=== PATIENT | male | born 1965 | race Caucasian/White ===

== ENCOUNTER 2017-08-19 02:47 | Inpatient (IN) ==
[2017-08-19] MEDS ORDERED: MOM Conc 10 ML UD.LIQ PO PRN (03:15)
[2017-08-19] MEDS ORDERED: hydrOXYzine pamoate 25 MG CAPSULE PO PRN (03:15)
[2017-08-19] MEDS ORDERED: *HR* LORazepam 2 MG/ML VIAL IM PRN (03:15)
[2017-08-19] MEDS ORDERED: *HR* LORazepam 1 MG TABLET PO PRN (03:15)
[2017-08-19] MEDS ORDERED: Mag Hydrox/Al Hydrox/Simeth 30 ML UDC PO PRN (03:15)
[2017-08-19] MEDS ORDERED: Acetaminophen 325 MG TABLET PO PRN (03:15)
[2017-08-19] MEDS ORDERED: Haloperidol Lactate 5 MG/ML VIAL IM PRN (03:15)
--- NOTE | 2017-08-19 13:35 | Psychiatry History & Physical ---
Date of Encounter: 08/19/17 Time of Encounter: 13:21 History of Present Illness Patient Stated Chief Complaint: suicidal ideation Medicare Admission Attestation: For traditional Medicare patients the provided hospital inpatient services are reasonable and necessary and in the case of services not specified as inpatient -only under 42 CFR 419.22 (n), that they are appropriately provided as inpatient services in accordance 42 CFR 412.3. For Critical Access Hospital the patient may reasonably be expected to be discharged or transferred to a hospital within 96 hours after admission to the Critical Access Hospital. Admitted From: Home Plans for Post Hospital Care: Home History of Present Illness: Mr. Guerrero is a 51 year old male who was admitted secondary to SI. Client has been living with his father. They got in an argument and client presented to the ER so he didn't do something he would regret in response to the arguing. Client is addicted to meth and this is often the source of the arguing. Client has no intention of stopping the meth. He reports he has been using for better than 20 years. He does not have any of the physical signs of being a meth user but his tox screen is positive for meth. Client states meth is what helps him feel normal and he is not looking to stop. He admits to being depressed. Has been admitted for SI in the past. Prior suicide attempts as well. Currently he seems to have more of a passive wish. However, he is very high risk. He is in liver failure. He is positive for Hep B and Hep C. He was supposed to have an ultrasound today to look for liver cancer but he canceled it. Client states he cancels most appointments and that he chronically does not follow through with things. He is not looking to fix anything wrong with him but he does want to know if he has a terminal condition and how much time he has left as this will impact how he chooses to live his life and the decisions he plans to make. Has been given the diagnoses of Bipolar Disorder and Multiple Personality Disorder in the past but has not followed up with Psychiatry in a long time. Willing to accept treatment for depression but does not have much hope that anything will work for him. Options are limited given the status of his liver. Discussed [place] since it is metabolized by the kidneys, is a great mood agent, and specifically targets suicidal thoughts. Discussed the potential for toxicity, the need for blood draws, the importance of staying hydrated, and side effects including the fact that [place] could impact kidney functioning. Client is agreeable at this time. Past Med Surg Social Fam HX - Past Medical History Medical history: cancer, GERD, other - Past Psychiatric History Psychiatric history: Reports: bipolar, depression, prior suicide attempt, previous psychiatric hospitalization Family psychiatric history: Unknown Family History of Suicide: Unknown - Past Surgical History Surgical History: no surgical history - Social History Smoking Status: Never smoker Smokeless Tobacco Status: No Alcohol use: none Drug use: methamphetamine, IV Drug Use - Family History Mother Adopted: [place]: Alissa Guerrero Age: 62 Family Member Ethnicity: Non- Living Status: Age at : 62 Cause of : CHF Hx Family Cardiac Disorders: No Hx Family Respiratory Disorders: Yes (Lung cancer) Hx Family Cancer: Yes Hx Family GI Disorders: Yes (colon cancer) Hx Family Genitourinary Disorders: No Hx Family Endocrine Disorder: No Hx Family Musculoskeletal Disorders: No Hx Family Neuromuscular Disorders: No Hx Family Neurologic Disorders: No Hx Family HEENT Disorders: No Hx Family Autoimmune Disorders: No Hx Family Reproductive Disorders: No Hx Family Psychosocial Disorders: No Hx Family Medical Disorders: No Medications & Allergies No Known Home Drugs 08/19/17 [History] 3 Allergy/AdvReac Type Severity Reaction Status Date / Time No Known Allergies Allergy Verified 01/23/16 19:17 Review of Systems Constitutional: Denies: fever, chills, weakness, weight change Eyes: Denies: eye pain, vision change Ears, Nose, Throat: Denies: ear pain, throat pain, dental pain, hearing loss, congestion Cardiovascular: Denies: chest pain, palpitations, dyspnea on exertion Respiratory: Denies: cough, dyspnea, wheezes Gastrointestinal: Reports: abdominal pain Genitourinary male: Denies: urgency, dysuria, frequency, genital lesions Genitourinary female: Denies: urgency, dysuria, frequency, abnormal menses, dyspareunia Musculoskeletal: Denies: joint swelling, joint pain Integumentary: Reports: other Neurological: Denies: headache, weakness, numbness, memory loss Endocrine: Denies: fatigue, heat or cold intolerance Hematologic/Lymphatic: Denies: easy bruising, lymphadenopathy Allergic/Immunologic: Denies: urticaria, itchy eyes Mental Status Exam Patient orientation: Yes Person, Yes Time, Yes Place Level of alertness: Alert Patient appearance: Appropriate Behavior: calm, cooperative Psychomotor activity: Normal Eye contact: Maintains Eye Contact Mood description: Depressed Affect description: congruent with mood Speech pattern: Normal rate, Normal rhythm, Normal tone Speech volume: Normal Thought process: Linear Thought content: Yes Suicidal ideation, No Homicidal ideation, No Overt delusions Perceptual disturbances: No Reacting to internal stimuli, Yes Auditory hallucinations, No Visual hallucinations Attention span: Capable of Focused Attention Memory description: Grossly Intact Patient reliability: Reliable Historian Intelligence estimate: Average Judgment: Limited Insight: Partial Exam - HEENT Head exam IM: Present: atraumatic Eye exam IM: Present: scleral icterus ENT exam IM: Present: mucous membranes moist - Neurological Neurological exam IM: Present: alert, oriented X3 - Respiratory Respiratory exam IM: Present: CTAB - GI/Abdominal GI/Abdominal exam IM: Present: hepatomegaly - Extremities Extremities exam IM: Present: full ROM - Skin Skin exam IM: Present: intact Results - Vital Signs Vital signs: Temp Pulse Resp BP 98.9 F 75 18 119/87 08/19/17 09:00 08/19/17 09:00 08/19/17 09:00 08/19/17 09:00 Assessment and Plan (1) Bipolar disorder with current episode depressed Current visit: Yes Status: Acute Plan: Admit inpatient for safety and stabilization, Close observation, Suicide Precautions per unit protocol, Encourage participation in unit milieu, Group Therapy, Monitor sleep, Monitor appetite Risks, benefits, side effects, alternatives discussed w/pt: Yes Patient agreeable to treatment: Yes Plans for Post Hospital Care: Home Estimated Length of Stay (Days): 4 Qualifiers: Current episode severity: severe Psychotic features: without psychotic features Qualified Code(s): F31.4 - Bipolar disorder, current episode depressed, severe, without psychotic features (2) Methamphetamine dependence Current visit: Yes Status: Acute Plan: Admit inpatient for safety and stabilization, Close observation, Suicide Precautions per unit protocol, Encourage participation in unit milieu, Group Therapy, Monitor sleep, Monitor appetite Risks, benefits, side effects, alternatives discussed w/pt: Yes Patient agreeable to treatment: Yes Plans for Post Hospital Care: Home Estimated Length of Stay (Days): 4
[2017-08-19] MEDS: Lithium Carbonate 300 MG CAPSULE PO SCH (20:57)
[2017-08-20] MEDS: Lithium Carbonate 300 MG CAPSULE PO SCH ×2 (08:35→20:54)
--- NOTE | 2017-08-20 11:15 | Psychiatry Progress Note ---
Date of Encounter: 08/20/17 Time of Encounter: 11:06 Subjective Interval history: Client is very depressed. He is trying to look at things less negatively which he says is a major change for him. Client states he normally can't even commit to trying to change his attitude. Has a lot of self loathing. Doesn't see himself as deserving any help but he is very grateful to the staff here for working with him. Did say he would agree to a liver ultrasound if that is something that can be arranged while he is here. Unknown if this can happen while he is on 1A but his follow through for medical care has been so poor in the community it is worth looking into. Compliant with [place]. No real mood benefits yet but client denies side effects. Agreeable to blood levels. Review of Systems Constitutional: Reports: weakness Eyes: Denies: eye pain, vision change Ears, Nose, Throat: Denies: ear pain, throat pain, dental pain, hearing loss, congestion Cardiovascular: Denies: chest pain, palpitations, dyspnea on exertion Respiratory: Denies: cough, dyspnea, wheezes Gastrointestinal: Reports: abdominal pain Musculoskeletal: Reports: myalgia Neurological: Reports: weakness Objective: Exam Patient orientation: Yes Person, Yes Time, Yes Place Level of alertness: Alert Patient appearance: Appropriate Behavior: calm, cooperative Psychomotor activity: Normal Eye contact: Maintains Eye Contact Mood description: Depressed Affect description: congruent with mood Speech pattern: Normal rate, Normal rhythm, Normal tone Speech volume: Normal Thought process: Linear Thought content: Yes Suicidal ideation, No Homicidal ideation, No Overt delusions Perceptual disturbances: No Auditory hallucinations, No Visual hallucinations Judgment: Limited Insight: Partial Results - Vital Signs Vital Signs: Temp Pulse Resp BP 97.6 F 72 14 118/85 08/20/17 08:41 08/20/17 08:41 08/20/17 08:41 08/20/17 08:41 Assessment and Plan (1) Bipolar disorder with current episode depressed Current visit: Yes Status: Acute Plan: Continue hospitalization, Close observation, Suicide Precautions per unit protocol, Encourage participation in unit milieu, Group Therapy, Monitor sleep, Monitor appetite Risks, benefits, side effects, alternatives discussed w/pt: Yes Patient agreeable to treatment: Yes Qualifiers: Current episode severity: severe Psychotic features: without psychotic features Qualified Code(s): F31.4 - Bipolar disorder, current episode depressed, severe, without psychotic features (2) Methamphetamine dependence Current visit: Yes Status: Acute Plan: Continue hospitalization, Close observation, Suicide Precautions per unit protocol, Encourage participation in unit milieu, Group Therapy, Monitor sleep, Monitor appetite Risks, benefits, side effects, alternatives discussed w/pt: Yes Patient agreeable to treatment: Yes Consult Discharge Plan - Plan Referrals: NONE,PCP [Primary Care Provider] -
[2017-08-21] MEDS: Lithium Carbonate 300 MG CAPSULE PO SCH ×2 (08:53→20:37)
--- NOTE | 2017-08-21 10:16 | Psychiatry Progress Note ---
Date of Encounter: 08/21/17 Time of Encounter: 10:11 Subjective Interval history: Pleasant and cooperative but remains depressed with SI. States he is trying to change his mindset. Grateful to staff for helping him. Cooperated with getting a liver ultrasound this morning. Agitated over fact that police had to accompany him. "I don't get along with the police. I didn't say anything. It' s stupid." Understood need to have police escort from . Did not argue against it but reported having a police presence soured his mood. States he is not feeling as physically well today. Complaining of some back pain. Still able to eat. No nausea or vomiting. Will get ultrasound results later today. Tolerating [place] but no real mood benefits yet. Still too early for a steady state blood level. Review of Systems Constitutional: Denies: fever, chills, weakness, weight change Eyes: Denies: eye pain, vision change Ears, Nose, Throat: Denies: ear pain, throat pain, dental pain, hearing loss, congestion Cardiovascular: Denies: chest pain, palpitations, dyspnea on exertion Respiratory: Denies: cough, dyspnea, wheezes Gastrointestinal: Reports: abdominal pain Musculoskeletal: Reports: back pain Neurological: Denies: headache, weakness, numbness, memory loss Results - Vital Signs Vital Signs: Temp Pulse Resp BP 98.2 F 68 18 109/82 08/21/17 09:00 08/21/17 09:00 08/21/17 09:00 08/21/17 09:00 - Impressions ITS Impressions Liver Ultrasound 08/21/17 00:00 IMPRESSION: Unremarkable right upper quadrant ultrasound. D/ / Ryland Dunbar MD / Ryland Dunbar MD Interpreting Provider: Ryland Dunbar MD Assessment and Plan (1) Bipolar disorder with current episode depressed Current visit: Yes Status: Acute Plan: Continue hospitalization, Close observation, Suicide Precautions per unit protocol, Encourage participation in unit milieu, Group Therapy, Monitor sleep, Monitor appetite Risks, benefits, side effects, alternatives discussed w/pt: Yes Patient agreeable to treatment: Yes Qualifiers: Current episode severity: severe Psychotic features: without psychotic features Qualified Code(s): F31.4 - Bipolar disorder, current episode depressed, severe, without psychotic features (2) Methamphetamine dependence Current visit: Yes Status: Acute Plan: Continue hospitalization, Close observation, Suicide Precautions per unit protocol, Encourage participation in unit milieu, Group Therapy, Monitor sleep, Monitor appetite Risks, benefits, side effects, alternatives discussed w/pt: Yes Patient agreeable to treatment: Yes Consult Discharge Plan - Plan Referrals: NONE,PCP [Primary Care Provider] -
[2017-08-22] MEDS: Lithium Carbonate 300 MG CAPSULE PO SCH ×3 (09:01→21:52)
--- NOTE | 2017-08-22 10:43 | Psychiatry Progress Note ---
Date of Encounter: 08/22/17 Time of Encounter: 10:38 Subjective Interval history: Client cooperative with liver ultrasound yesterday. Report on line but nothing concerning on exam. Elevated transaminases likely secondary to Hep B and Hep C. Explained diagnosis to client and importance of following up with a GI specialist for management at the time of discharge. Client indicated he was hoping for something terminal. Said this with a half smile. Clearly depressed but may be looking at some personality issues as well. Client reports no real benefit from the [place]. However, he clinically looks a little better to this gag writer. More affect. More inflection in voice. Subtle signs. States he is eating and sleeping well. SI still present. [place] level scheduled to be drawn morning of 08/24. Dose can be adjusted based on level. May need to consider adding an antidepressant but will need to use caution given liver condition. Review of Systems Constitutional: Denies: fever, chills, weakness, weight change Eyes: Denies: eye pain, vision change Ears, Nose, Throat: Denies: ear pain, throat pain, dental pain, hearing loss, congestion Cardiovascular: Denies: chest pain, palpitations, dyspnea on exertion Respiratory: Denies: cough, dyspnea, wheezes Gastrointestinal: Reports: abdominal pain Musculoskeletal: Reports: back pain, myalgia Neurological: Denies: headache, weakness, numbness, memory loss Objective: Exam Patient orientation: Yes Person, Yes Time, Yes Place Level of alertness: Alert Patient appearance: Appropriate Behavior: calm, cooperative Psychomotor activity: Normal Eye contact: Maintains Eye Contact Mood description: Depressed Affect description: congruent with mood Speech pattern: Normal rate, Normal rhythm, Normal tone Speech volume: Normal Thought process: Linear Thought content: Yes Suicidal ideation, No Homicidal ideation, No Overt delusions Perceptual disturbances: No Auditory hallucinations, No Visual hallucinations Judgment: Limited Insight: Partial Results - Vital Signs Vital Signs: Temp Pulse Resp BP 98 F 67 16 120/85 08/22/17 09:00 08/22/17 09:00 08/22/17 09:00 08/22/17 09:00 - Impressions ITS Impressions Liver Ultrasound 08/21/17 00:00 IMPRESSION: Unremarkable right upper quadrant ultrasound. D/ / Ryland Dunbar MD / Ryland Dunbar MD Interpreting Provider: Ryland Dunbar MD Assessment and Plan (1) Bipolar disorder with current episode depressed Current visit: Yes Status: Acute Plan: Continue hospitalization, Close observation, Suicide Precautions per unit protocol, Encourage participation in unit milieu, Group Therapy, Monitor sleep, Monitor appetite Risks, benefits, side effects, alternatives discussed w/pt: Yes Patient agreeable to treatment: Yes Qualifiers: Current episode severity: severe Psychotic features: without psychotic features Qualified Code(s): F31.4 - Bipolar disorder, current episode depressed, severe, without psychotic features (2) Methamphetamine dependence Current visit: Yes Status: Acute Plan: Continue hospitalization, Close observation, Suicide Precautions per unit protocol, Encourage participation in unit milieu, Group Therapy, Monitor sleep, Monitor appetite Risks, benefits, side effects, alternatives discussed w/pt: Yes Patient agreeable to treatment: Yes Consult Discharge Plan - Plan Referrals: NONE,PCP [Primary Care Provider] -
[2017-08-23] MEDS: Lithium Carbonate 300 MG CAPSULE PO SCH ×2 (08:19→20:30)
--- NOTE | 2017-08-23 11:32 | Psychiatry Progress Note ---
Date of Encounter: 08/23/17 Time of Encounter: 10:10 Subjective Interval history: Emanuel is seen today for follow-up. Previous notes reviewed. Patient has a long-standing history of bipolar disorder exacerbated by his drug use. He presented to the hospital with increasing depression and suicidal ideations. Patient also has elevated liver functions and jaundice. The patient verbalized to staff that he hopes that the liver problems are terminal for him. Today he is ambivalent about this. He does admit to 3 suicide attempts in the past year and a half. He has overdosed several times without any results. He is not interested in discontinuing his methamphetamine abuse even if this is exacerbating his physical health and mental health issues. He reports auditory hallucinations telling him "derogatory things." He does feel depressed and does not think anything will improve for him. He feels guilt about his lifestyle choices but is not sure he can change them. "This is kind of it." He is willing to take lithium to see if it will help with mood. Review of Systems Constitutional: Reports: other (Fatigue). Denies: fever, chills, weakness, weight change Eyes: Denies: eye pain, vision change Ears, Nose, Throat: Denies: ear pain, throat pain, dental pain, hearing loss, congestion Cardiovascular: Denies: chest pain, palpitations, dyspnea on exertion Respiratory: Denies: cough, dyspnea, wheezes Gastrointestinal: Denies: abdominal pain, nausea, vomiting, diarrhea, constipation Musculoskeletal: Denies: joint swelling, joint pain Neurological: Denies: headache, weakness, numbness, memory loss Psychiatric: Reports: depression, suicidal ideation, auditory hallucinations, anhedonia, hopelessness, irritability Objective: Exam Patient orientation: Yes Person, Yes Time, Yes Place Level of alertness: Alert Patient appearance: Unkempt, Disheveled Behavior: calm, guarded Psychomotor activity: Normal Eye contact: Diverts Contact Mood description: Depressed Affect description: flat Speech pattern: Normal rate, Normal rhythm, Normal tone Speech volume: Normal Thought process: Intact Thought content: Yes Suicidal ideation Perceptual disturbances: No Reacting to internal stimuli, Yes Auditory hallucinations Judgment: Limited Insight: Minimal Results - Vital Signs Vital Signs: Temp Pulse Resp BP 98.1 F 68 16 117/81 08/23/17 08:52 08/23/17 08:52 08/23/17 08:52 08/23/17 08:52 - Impressions ITS Impressions Liver Ultrasound 08/21/17 00:00 IMPRESSION: Unremarkable right upper quadrant ultrasound. D/ / Ryland Dunbar MD / Ryland Dunbar MD Interpreting Provider: Ryland Dunbar MD Assessment and Plan (1) Bipolar disorder, curr episode mixed, severe, with psychotic features Current visit: No Status: Acute Plan: Continue hospitalization, Close observation, Suicide Precautions per unit protocol, Encourage participation in unit milieu, Group Therapy, Monitor sleep, Monitor appetite Additional Plan: Continue lithium. Labs drawn tomorrow. Patient remains very depressed and hopeless. We will go through with probation paperwork as patient has high risk with limited resources, multiple past attempts, substance abuse issues. He does not appear to be invested in treatment or hopeful that things will improve at this time. Currently has a passive wish to via his liver issues. Risks, benefits, side effects, alternatives discussed w/pt: Yes Patient agreeable to treatment: Yes (2) Methamphetamine dependence Current visit: Yes Status: Acute Risks, benefits, side effects, alternatives discussed w/pt: Yes Patient agreeable to treatment: Yes Consult Discharge Plan - Plan Referrals: NONE,PCP [Primary Care Provider] -
[2017-08-24] MEDS: Lithium Carbonate 300 MG CAPSULE PO SCH ×2 (09:01→20:56)
--- NOTE | 2017-08-24 10:01 | Psychiatry Progress Note ---
Date of Encounter: 08/24/17 Time of Encounter: 09:25 Subjective Interval history: Emanuel is seen today for follow-up. He continues to be irritable with staff. Yesterday reported to staff paranoid thinking about possible crimes occurring near where he lives he reported to staff that is was "all over the paper." However, patient does not have access to the paper or any source. He is paranoid that his father may have gone to the police about a murder that took place. Today patient denies thoughts of hurting himself or others by states that he does have chronic thoughts of wanting to end his life is just not having any at the moment. He is willing to continue to titrate the lithium for improvement in his overall mood. He is concerned about his diagnosis in terms of hepatitis and wants more information about this. Today he seems more proactive about caring for his health issues when he leaves the hospital. Review of Systems Psychiatric: Reports: depression, suicidal ideation, auditory hallucinations, anhedonia, hopelessness, irritability Objective: Exam Patient orientation: Yes Person, Yes Time, Yes Place Level of alertness: Alert Patient appearance: Unkempt, Disheveled Behavior: guarded Psychomotor activity: Normal Eye contact: Fleeting Contact Mood description: Euthymic/stable Affect description: flat Speech pattern: Normal rate, Normal rhythm, Normal tone Speech volume: Normal Thought process: Intact Thought content: Yes Suicidal ideation (Chronic) Perceptual disturbances: No Reacting to internal stimuli, Yes Auditory hallucinations Judgment: Limited Insight: Minimal Results - Vital Signs Vital Signs: Temp Pulse Resp BP 98.1 F 61 18 110/75 08/24/17 09:00 08/24/17 09:00 08/24/17 09:00 08/24/17 09:00 - Drug Levels and Toxicology Drug Levels and Toxicology: Drug Levels and Toxicity 08/24/17 07:35 [place] 0.3 L - Labs Labs: Laboratory Results - last 24 hr 08/24/17 07:35 [place] 0.3 L - Impressions ITS Impressions Liver Ultrasound 08/21/17 00:00 IMPRESSION: Unremarkable right upper quadrant ultrasound. D/ / Ryland Dunbar MD / Ryland Dunbar MD Interpreting Provider: Ryland Dunbar MD Assessment and Plan (1) Bipolar disorder, curr episode mixed, severe, with psychotic features Current visit: No Status: Acute Plan: Continue hospitalization, Close observation, Suicide Precautions per unit protocol, Encourage participation in unit milieu, Group Therapy, Monitor sleep, Monitor appetite Additional Plan: Increase lithium to 600 mg by mouth twice a day. We will redraw labs on . Continue to encourage group participation. Coordinate with family for safe discharge plan. Continue hospitalization until symptoms improve. Risks, benefits, side effects, alternatives discussed w/pt: Yes Patient agreeable to treatment: Yes (2) Methamphetamine dependence Current visit: Yes Status: Acute Additional Plan: Patient currently not interested in discontinuing methamphetamine use. He is aware that this affects his mood and his judgment. Risks, benefits, side effects, alternatives discussed w/pt: Yes Patient agreeable to treatment: Yes Consult Discharge Plan - Plan Referrals: NONE,PCP [Primary Care Provider] -
[2017-08-24] MEDS: traZODone 50 MG TABLET PO PRN (20:56)
[2017-08-25] MEDS: Lithium Carbonate 300 MG CAPSULE PO SCH ×2 (09:25→20:49)
--- NOTE | 2017-08-25 10:53 | Psychiatry Progress Note ---
Date of Encounter: 08/25/17 Time of Encounter: 10:40 Subjective Interval history: Patient is seen today for follow-up. He reports that he is doing a little bit better terms of mood. He is a bit overwhelmed by all the things he needs to accomplish hospital he is follow-up scheduled for both substance abuse and his liver function issues which is secondary to hepatitis B and C. He is not having any side effects from the lithium at present and is agreeable to lab draw tomorrow morning. He is more hopeful for the future. He does appear more engaged and interested in trying to make some positive changes in his life. Review of Systems Psychiatric: Reports: depression, suicidal ideation, auditory hallucinations, anhedonia, hopelessness, irritability Objective: Exam Patient orientation: Yes Person, Yes Time, Yes Place Level of alertness: Alert Patient appearance: Appropriate Behavior: calm, cooperative Psychomotor activity: Normal Eye contact: Minimal Contact Mood description: Depressed Speech pattern: Normal rate, Normal rhythm, Normal tone Speech volume: Normal Thought process: Intact Thought content: No Suicidal ideation, No Homicidal ideation Perceptual disturbances: No Auditory hallucinations, No Visual hallucinations Judgment: Limited Insight: Partial Results - Vital Signs Vital Signs: Temp Pulse Resp BP 98.6 F 75 16 115/77 08/25/17 09:00 08/25/17 09:00 08/25/17 09:00 08/25/17 09:00 - Impressions ITS Impressions Liver Ultrasound 08/21/17 00:00 IMPRESSION: Unremarkable right upper quadrant ultrasound. D/ / Ryland Dunbar MD / Ryland Dunbar MD Interpreting Provider: Ryland Dunbar MD Assessment and Plan (1) Bipolar disorder, curr episode mixed, severe, with psychotic features Current visit: No Status: Acute Plan: Continue hospitalization, Close observation, Suicide Precautions per unit protocol, Encourage participation in unit milieu, Group Therapy, Monitor sleep, Monitor appetite Additional Plan: Continue lithium. Follow-up labs tomorrow and plans for discharge if patient remains stable. Encouraged patient to continue outpatient treatment for mental health and substance abuse. Risks, benefits, side effects, alternatives discussed w/pt: Yes Patient agreeable to treatment: Yes (2) Methamphetamine dependence Current visit: Yes Status: Acute Risks, benefits, side effects, alternatives discussed w/pt: Yes Patient agreeable to treatment: Yes Consult Discharge Plan - Plan Referrals: [facility] [Outside] - 08/26/17 1:00 pm (The above appointment is with Sudha for outpatient substance abuse and mental health counseling services.) Angela Fitch [Advanced Practice Nurse] - 08/30/17 8:00 am (The above appointment is with Shonna Fitch for primary healthcare and medication management services, and for follow-up/referral of recent liver testing.) Romina Beach CNP [Advanced Practice Nurse] -
[2017-08-25] MEDS: traZODone 50 MG TABLET PO PRN (22:41)
[2017-08-26] MEDS: Lithium Carbonate 300 MG CAPSULE PO SCH (08:13)
[2017-08-26 09:24] VITALS: BP 111/77
--- NOTE | 2017-08-26 09:43 | Discharge Summary ---
Date of Encounter: 08/26/17 Time of Encounter: 09:00 Diagnosis - Discharge Diagnosis (1) Bipolar disorder, curr episode mixed, severe, with psychotic features Priority: Primary Status: Acute (2) Methamphetamine dependence Priority: Secondary Status: Acute Medications - Discharge Medications Prescriptions: New Home Carbonate 600 mg PO BID #60 capsule traZODone [TraZODone] 50 mg PO HS PRN #30 tablet PRN Reason: Insomnia New Home Carbonate 600 mg PO BID #60 capsule 08/26/17 [Rx] traZODone [TraZODone] 50 mg PO HS PRN #30 tablet 08/26/17 [Rx] 3 Allergy/AdvReac Type Severity Reaction Status Date / Time No Known Allergies Allergy Verified 01/23/16 19:17 Results Procedures and tests throughout hospitalization: Completed Lab Orders Category Date Time Status New Home Routine Lab 08/24/17 07:35 Completed New Home Routine Lab 08/26/17 06:13 Completed Completed Imaging Orders Category Date Time Status US liver [US] Routine Exams 08/21/17 Completed Provider Date of admission: 08/19/17 02:47 Primary care physician: PCP NONE Discharging clinician: Any Hoff Assessment and Plan - Patient/Caregiver Discharge Instructions Activity: resume usual activities as tolerated Diet: regular diet - Follow up Plan Follow up with: [facility] [Outside] - 08/26/17 1:00 pm (The above appointment is with Sudha for outpatient substance abuse and mental health counseling services.) Angela Fitch [Advanced Practice Nurse] - 08/30/17 8:00 am (The above appointment is with Shonna Fitch for primary healthcare and medication management services, and for follow-up/referral of recent liver testing.) Romina Beach CNP [Advanced Practice Nurse] - 10/01/17 2:20 pm (The above appointment is with Adali Beach for outpatient psychiatric assessment and medication management services. This is the first available new patient appointment in the schedule. Office staff will however contact you when they get a cancellation so you will get seen sooner.) Functional capacity at discharge: independent ambulation Overall status at discharge: patient is back to baseline Disposition: Home, Self-Care Hospital Course Hospital course: Mr. Guerrero is a 51 year old male with a history of bipolar disorder and methamphetamine abuse who presented to the hospital with suicidal ideation after an argument with his father. He was admitted to 1 for psychiatric stabilization. Patient admitted to not caring for his medical problems and coping that his hepatitis B and C would be terminal. Patient was admitted to 1 for psychiatric stabilization. He was incorporated into the therapeutic milieu and group and individual as well as recreational therapy. He was also offered psychoeducational materials and supportive therapy. He was placed on suicide precautions and close observation. Patient reports chronic suicidal ideations "in the back of my mind." Throughout the course of hospital stay patient reports that these lessons. He denies any intent or plan to hurt himself at this time. He does have a very antagonistic relationship with his father and is going to live with father secondary to not having another place stay. Patient has mixed feelings about this. He did verbalize that he would like to get help with his hepatitis and also with his drug habit. He did verbalize to staff that he had no plans to stop his drug habit. Patient was educated extensively about both the hepatitis B as well as stopping using drugs and alcohol would be absolutely necessary for patient to maintain physical and mental health. At the time of discharge he did deny suicidal or homicidal ideation, intent or plan. He denied auditory or visual hallucinations. We reviewed his medications and the importance of coming to the hospital with any symptoms of lithium toxicity. These were reviewed with patient. Secondary to patient's chronic drug use and other psychosocial stressors he is chronically at higher risk for accidental or intentional self-harm. However at this time, his symptoms have improved to the point where he has gained all benefit possible from inpatient admission. Patient will have to continue his treatment as an outpatient. We have educated the family on the importance of getting patient to his follow-up appointments and keeping extra medications and weapons locked away. He is discharged in stable condition. - Time Spent with Patient Total time spent providing and/or coordinating discharge services: Greater than 30 minutes Quality - Multiple Antipsychotics Patient discharged on 2 or more antipsychotic medications: No Procedures - Procedures Procedures: Medication Management, Crisis Stabilization, Supportive Therapy, Group Therapy, Psychoeducational Therapy Mental Status Exam - Mental Status Exam Patient orientation: Yes Person, Yes Time, Yes Place Level of alertness: Alert Patient appearance: Appropriate Behavior: calm, cooperative Psychomotor activity: Normal Eye contact: Maintains Eye Contact Mood description: Euthymic/stable Affect description: congruent with mood, full range Speech pattern: Normal rate, Normal rhythm, Normal tone Speech Volume: Normal Thought process: Linear, Goal Oriented Thought Content: No Suicidal ideation, No Homicidal ideation, No Overt delusions Perceptual Disturbances: No Auditory hallucinations, No Visual hallucinations Judgment: Limited Insight: Partial
== END 2017-08-26 11:33 | disposition home or self-care (01) | DRG 753 ==
LOC: SUATTDRO 02:47 → 1ANU 02:47
PROVIDERS: ADMIT Psychiatry & Neurology Psychiatry; ATTEND Student in an Organized Health Care Education/Training Program